=== PATIENT | female | born 1970 | race African-American/Black ===

== ENCOUNTER 2022-07-27 10:05 | Outpatient (CLI) | payer OTHER, SELFPAY ==
--- NOTE | 2022-07-27 10:15 | CRLHL7_ITS ---
For Patients: As a result of the Century Cures Act, medical imaging exams and procedure reports are released immediately into your electronic medical record. You may view this report before your referring provider. If you have questions, please contact your health care provider. INDICATION: Dizziness TECHNIQUE: Non-contrast sagittal T1, axial FLAIR, FSE T2, DWI, posterior fossa CISS images provided. Supplemental post contrast T1 weighted axial and coronal high resolution images through the posterior fossa with fat saturation and post contrast whole head axial T1 weighted images submitted. No comparisons. FINDINGS: The ventricles, sulci and gyri are of normal size, shape and contour for age. Midline structures are centrally located. No convincing evidence of suspicious intra- or extra-axial fluid collections. No regions of restricted diffusion. Expected flow-voids within the cavernous carotids and basilar artery. No suspicious masses within the internal auditory canals. No suspicious regions of abnormal parenchymal enhancement. IMPRESSION: 1. No radiographic evidence of acute intracranial abnormalities. Dictated by Titus Georges MD @ 07/27/2022 6:01:12 PM (Electronically Signed)
== END 2022-07-27 10:06 | disposition home or self-care (01) ==
LOC: MRI 10:06
PROVIDERS: Visit Provider Otolaryngology
DX: R42 Dizziness and giddiness (principal)
CPT/HCPCS: 70553; A9575

== ENCOUNTER 2022-10-10 22:13 | Emergency (ER) | payer OTHER, SELFPAY ==
[2022-10-10 22:28] VITALS: BP 117/76; PULSE 65; RESP 18; TEMP 37.3; O2SAT 100; BMI 24.9
--- NOTE | 2022-10-10 22:55 | ED.NURSE ---
Up to the bathroom to void and collecting a urine sample.
[2022-10-10 23:08] LABS: Appearance Urine Clear (Clear); Bilirubin Urine Negative (Negative); Blood Urine 2+ (Negative); Color Urine Yellow (Yellow); Glucose Urine Negative (Negative); Ketones Urine Negative (Negative); Leukocyte Esterase Urine Negative (Negative); Nitrite Urine Negative (Negative); Protein Urine Negative (Negative); Specific Gravity Urine >= 1.030 (1.000-1.030); Urobilinogen Urine 0.2 (0.2-1.0)
--- NOTE | 2022-10-10 23:08 | CRLHL7_ITS ---
For Patients: As a result of the 21st Century Cures Act, medical imaging exams and procedure reports are released immediately into your electronic medical record. You may view this report before your referring provider. If you have questions, please contact your health care provider. INDICATION: Abdominal pain and distention. TECHNIQUE: CT abdomen and pelvis acquired with 71 mL Isovue 370 contrast. COMPARISON: None. FINDINGS: Lower chest: No focal consolidation. 0.3 cm subpleural nodule in the left lower lobe (series 3, image 11). Liver: Multiple too small to characterize hypodense hepatic lesions. Gallbladder and bile ducts: Gallbladder is decompressed, suboptimally evaluated. Pancreas: Unremarkable. Spleen: Unremarkable. Adrenal glands: Unremarkable. Kidneys: There is moderate right hydronephrosis and hydroureter, secondary to mass effect from large pelvic mass. Retroperitoneum: No pathologically enlarged lymph node identified. Bowel and mesentery: Evaluation of the bowel and mesentery is limited secondary to presence of large pelvic mass. No evidence of bowel obstruction. No significant ascites. Tiny hiatal hernia. No definite pneumoperitoneum. Bladder: Decompressed, suboptimally evaluated. Reproductive organs: Bulky appearance of the uterus. There is a large mixed cystic and solid mass which is probably centered in the right adnexa measuring approximately 14.3 x 10.7 x 12.4 cm, with several thickened septations and nodular soft tissue components. Pelvic lymph nodes: No pathologically enlarged lymph node identified. Vessels: Unremarkable. Abdominal wall: No acute abdominal wall abnormality. Bones: Dense sclerotic lesion in the L3 vertebral body, favored to reflect a bone island. IMPRESSION: 1. Large mixed cystic and solid mass centered in the right adnexa measuring approximately 14.3 x 10.7 x 12.4 cm, with several thickened septations and nodular soft tissue components. Appearance is worrisome for malignant neoplasm, favor to be ovarian in origin. Gynecologic surgical consultation is recommended. 2. Mass effect results in moderate right hydronephrosis and hydroureter. 3. Multiple too small to characterize hypodense hepatic lesions. 0.3 cm subpleural pulmonary nodule in the left lower lobe. These are probably not metastatic, however follow-up with liver MRI and dedicated CT chest on a nonemergent basis is recommended. Please note that all CT scans at this facility use dose modulation, iterative reconstruction, and/or weight-based dosing when appropriate to reduce radiation dose to as low as reasonably achievable. Dictated by Sopo Jillian,MD @ 10/11/2022 12:53:00 AM (Electronically Signed)
--- NOTE | 2022-10-10 23:20 | ED.ABDPAIN ---
HPI - Abdominal Pain General Chief Complaint: Abdominal Pain Stated Complaint: abdominal pain Time Seen by Provider: 10/10/22 22:59 History of Present Illness HPI narrative: Pt is a 52 year old woman who presents with several weeks of progressive abd pain and distension. Pt's abd issues date back to when she was 17 and had a colon perforation during an . Pt had to have surgery and have a colostomy for 6 months or so. She had removal of a uterine fibroid 3 years ago but has not had any other abd surgeries. Pt has had no change in her urination or bowels. Pt states that pain is moderate with radiation to the low abd. No fever or chills. No nausea or vomiting. Pt has been eating a regular diet without any difficulty. No other radiation of the pain. No other significant symptoms. Pt had a normal mensus last week. Related Data Previous Rx's Medication Instructions Recorded meclizine 25 mg chewable tablet 12.5 mg PO BID-TID PRN vertigo #20 07/18/22 (Antivert) tabs fluticasone propionate 50 2 spray intranasal QDAY 30 days 07/19/22 mcg/actuation nasal #16 grams spray,suspension albuterol sulfate 90 mcg/actuation 2 puff inhalation Q6H PRN 08/13/22 aerosol inhaler (Ventolin HFA) shortness of breath or wheezing #6.7 grams Allergies Allergy/AdvReac Type Severity Reaction Status Date / Time hydrocodone [From Vicodin] Allergy Mild Nausea Verified 10/10/22 22:48 Review of Systems Status of ROS Reports: 10 or more systems reviewed and unremarkable except as noted in History and below [facility] Medical History (Updated 10/11/22 @ 01:47 by Marciano Null MD) Ovarian mass Perforated bowel Uterine fibroid Vertigo Social History Smoking Status: Never smoker Exam Narrative: Exam Narrative: EXAM GENERAL: Patient appears comfortable and well. EYES: No scleral icterus. THYROID: no thyroid nodules or thyromegaly. LYMPH: No supraclavicular or cervical lymphadenopathy. SKIN: Visible skin seen during exam normal or with benign process only. EXT: No dependent lower extremity pedal edema. HEART: Regular rate and rhythm with no murmurs, rubs, or gallops. LUNGS: Clear to auscultation bilaterally with no crackles or wheezes. ABD: Mildly distended and rigid. Hypoactive bowel sounds. Previous surgical incisions noted and healed most prominent in the midline. PSYCH: Good eye contact, speech is not pressured. Const: Vital Signs, click to edit/add: Vital Signs - 24 hr 10/10/22 22:28 10/11/22 00:28 Temperature 99.2 F 97.9 F Pulse Rate [Right Pulse Oximeter] 65 64 Respiratory Rate 18 16 Blood Pressure [Ri ght Upper Arm] 117/76 111/73 Pulse Oximetry 100 99 Oxygen Delivery Me thod Room Air Room Air Course Course Hospital Course: Pt seen and examined. CT abd pelvis, cbc, cmp, amylase urine preg and ua ordered. Reevaluation(s) Reevaluation #1: Laboratory significant only for mild nomocytic anemia. CT of abd and pelvis shows a large 14.3X10.7X12.4 cm lesion likely arising from the right ovary suspicious for malignancy. Mild hydronephrosis not with normal Cr. Time: 01:06 Vital Signs Vital signs: Initial Vital Signs Temperature 99.2 F 10/10/22 22:28 Temperature Source Temporal Artery Scan 10/10/22 22:28 Pulse Rate 65 10/10/22 22:28 Respiratory Rate 18 10/10/22 22:28 Blood Pressure 117/76 10/10/22 22:28 Blood Pressure Mean 89 10/10/22 22:28 Blood Pressure Position Sitting 10/10/22 22:28 Pulse Oximetry 100 10/10/22 22:28 Oxygen Delivery Method 10/10/22 22:28 Vital Signs Temperature 99.2 F 10/10/22 22:28 Pulse Rate 65 10/10/22 22:28 Respiratory Rate 18 10/10/22 22:28 Blood Pressure 117/76 10/10/22 22:28 Pulse Oximetry 100 10/10/22 22:28 Oxygen Delivery Method 10/10/22 22:28 Temperature 97.9 F 10/11/22 00:28 Pulse Rate 64 10/11/22 00:28 Respiratory Rate 16 10/11/22 00:28 Blood Pressure 111/73 10/11/22 00:28 Pulse Oximetry 99 10/11/22 00:28 Oxygen Delivery Method 10/11/22 00:28 MDM - Abdominal Pain MDM Narrative Medical decision making narrative: Pt is a 52 year old woman who presents with several weeks of progressive abd pain. CT as above shows a large mass. Pt has distension of abd but otherwise has a normal exam. Vitals are stable. Called [facility] locally who recommended [facility] who I discussed the case with. Oked outpt follow up. Order placed for consult. Pt given my card to make sure all goes smoothly. Differential Diagnosis Differential diagnosis: Likely abdominal pain, acute appendicitis, constipation, diverticulitis, endometriosis, gastroenteritis, pancreatitis and small bowel obstruction Lab Data Labs: Lab Results 10/10/22 10/10/22 10/10/22 Range/Units 00:19 00:19 00:19 WBC 5.59 (4.50-11.00) K/uL RBC 3.83 L (4.00-5.20) m/uL Hgb 10.9 L (12.0-16.0) gm/dL Hct 34.9 (33.0-51.0) % MCV 91 (80-100) fL MCH 29 (26-34) pg MCHC 31 L (32-36) gm/dL RDW Coeff of Raissa 14.9 (11.5-15.5) % Plt Count 392 (140-440) K/uL Neut % (Auto) 52.5 (42.0-72.0) % Lymph % (Auto) 34.3 (20-44) % [place] % (Auto) 11.1 H (0.0-11.0) % Eos % (Auto) 1.6 (0.0-7.0) % Baso % (Auto) 0.5 (0.0-3.0) % Neut # (Auto) 2.93 (1.7-7.0) K/uL Lymph # (Auto) 1.92 (0.90-2.90) K/uL [place] # (Auto) 0.60 (0.00-0.90) K/UL Eos # (Auto) 0.09 (0.00-0.50) K/uL Baso # (Auto) 0.03 (0.00-0.30) K/uL Sodium 139 (135-149) mmol/L Potassium 3.9 (3.6-5.1) mmol/L Chloride 106 (96-114) mmol/L Carbon Dioxide 27 (20-32) mmol/L BUN 10 (7-30) mg/dL Creatinine 0.9 (0.5-1.5) mg/dL Estimated Creat Clear 63.86 Estimated GFR 77 ml/min Glucose 87 (60-115) mg/dL Lactate (0.5-1.9) mmol/L Calcium 8.8 (8.4-10.6) mg/dL Total Bilirubin 0.4 (0.1-1.5) mg/dL AST 35 (12-35) U/L ALT 35 (4-35) U/L Alkaline Phosphatase 53 (40-150) U/L Total Protein 8.1 (6.0-8.3) g/dL Albumin 4.4 (3.3-5.0) g/dL Amylase 79 (18-89) U/L Urine Color Yellow (Yellow) Urine Appearance Clear (Clear) Urine pH 6.0 (5.0-8.5) Ur Specific [place] >= 1.030 (1.000-1.030) Urine Protein Negative (Negative) Urine Glucose (UA) Negative (Negative) Urine Ketones Negative (Negative) Urine Blood 2+ A (Negative) Urine Nitrite Negative (Negative) Urine Bilirubin Negative (Negative) Urine Urobilinogen 0.2 (0.2-1.0) Ur Leukocyte Esterase Negative (Negative) Urine RBC 2-5 A (0-2) Urine WBC 0-2 (0-5) Ur Squamous Epith Cells Moderate A (None-Few) Other Sediment YEAST (None) Urine Bacteria Few A (None) 10/10/22 Range/Units 00:19 WBC (4.50-11.00) K/uL RBC (4.00-5.20) m/uL Hgb (12.0-16.0) gm/dL Hct (33.0-51.0) % MCV (80-100) fL MCH (26-34) pg MCHC (32-36) gm/dL RDW Coeff of Raissa (11.5-15.5) % Plt Count (140-440) K/uL Neut % (Auto) (42.0-72.0) % Lymph % (Auto) (20-44) % [place] % (Auto) (0.0-11.0) % Eos % (Auto) (0.0-7.0) % Baso % (Auto) (0.0-3.0) % Neut # (Auto) (1.7-7.0) K/uL Lymph # (Auto) (0.90-2.90) K/uL [place] # (Auto) (0.00-0.90) K/UL Eos # (Auto) (0.00-0.50) K/uL Baso # (Auto) (0.00-0.30) K/uL Sodium (135-149) mmol/L Potassium (3.6-5.1) mmol/L Chloride (96-114) mmol/L Carbon Dioxide (20-32) mmol/L BUN (7-30) mg/dL Creatinine (0.5-1.5) mg/dL Estimated Creat Clear Estimated GFR ml/min Glucose (60-115) mg/dL Lactate 0.5 (0.5-1.9) mmol/L Calcium (8.4-10.6) mg/dL Total Bilirubin (0.1-1.5) mg/dL AST (12-35) U/L ALT (4-35) U/L Alkaline Phosphatase (40-150) U/L Total Protein (6.0-8.3) g/dL Albumin (3.3-5.0) g/dL Amylase (18-89) U/L Urine Color (Yellow) Urine Appearance (Clear) Urine pH (5.0-8.5) Ur Specific [place] (1.000-1.030) Urine Protein (Negative) Urine Glucose (UA) (Negative) Urine Ketones (Negative) Urine Blood (Negative) Urine Nitrite (Negative) Urine Bilirubin (Negative) Urine Urobilinogen (0.2-1.0) Ur Leukocyte Esterase (Negative) Urine RBC (0-2) Urine WBC (0-5) Ur Squamous Epith Cells (None-Few) Other Sediment (None) Urine Bacteria (None) Discharge Plan Discharge Clinical Impression: Mass, ovarian Patient Disposition: Home, Self-Care Condition: Stable Additional Instructions: Tylenol Motrin Rest Follow up with [facility] for further recommendations. Activity Level: Activity as Tolerated Discharge Diet: Regular Prescriptions: No Action meclizine [Antivert] 25 mg tablet,chewable 12.5 mg PO BID-TID PRN (Reason: vertigo) Qty: 20 0RF fluticasone propionate 50 mcg/actuation spray,suspension 2 spray intranasal QDAY 30 Days Qty: 16 11RF Rx Instructions: administer into each nostril albuterol sulfate [Ventolin HFA] 90 mcg/actuation HFA aerosol inhaler 2 puff inhalation Q6H PRN (Reason: shortness of breath or wheezing) Qty: 6.7 0RF Follow Up/Referrals: Provider,Not a Local [Primary Care Provider] - Stand Alone Forms: [employer] Info Instructions
[2022-10-10 23:35] LABS: Lactate* 0.5 mmol/L (0.5-1.9)
[2022-10-10 23:36] LABS: Bacteria Urine Few; Other Sediment Urine YEAST; Squamous Epithelial Cell Urine Moderate (None-Few); WBC Urine 0-2 (0-5)
[2022-10-10 23:37] LABS: Basophils Absolute Auto 0.03 K/uL (0.00-0.30); Basophils Percent Auto 0.5 % (0.0-3.0); Eosinophils Absolute Auto 0.09 K/uL (0.00-0.50); Eosinophils Percent Auto 1.6 % (0.0-7.0); Hematocrit 34.9 % (33.0-51.0); Hemoglobin* 10.9 gm/dL (12.0-16.0); Lymphocytes Absolute Auto 1.92 K/uL (0.90-2.90); Lymphocytes Percent Auto 34.3 % (20-44); Mean Corpuscular HGB Conc 31 gm/dL (32-36); Mean Corpuscular Hemoglobin 29 pg (26-34); Mean Corpuscular Volume 91 fL (80-100); Monocytes Percent Auto 11.1 % (0.0-11.0); Neutrophils Absolute Auto 2.93 K/uL (1.7-7.0); Neutrophils Percent Auto 52.5 % (42.0-72.0); Platelet Count* 392 K/uL (140-440); RDW Coefficient of Variation % 14.9 % (11.5-15.5); Red Blood Count 3.83 m/uL (4.00-5.20); White Blood Count* 5.59 K/uL (4.50-11.00)
[2022-10-10 23:40] LABS: Slide Review Reflex No
--- NOTE | 2022-10-10 23:53 | ED.NURSE ---
Pt to imaging.
[2022-10-10 23:55] LABS: Albumin* 4.4 g/dL (3.3-5.0); Chloride* 106 mmol/L (96-114); Potassium* 3.9 mmol/L (3.6-5.1); Sodium* 139 mmol/L (135-149)
[2022-10-10 23:57] LABS: Amylase* 79 U/L (18-89); Carbon Dioxide* 27 mmol/L (20-32)
[2022-10-10 23:58] LABS: Alanine Aminotransferase* 35 U/L (4-35); Alkaline Phosphatase* 53 U/L (40-150); Aspartate Amino Transferase* 35 U/L (12-35); Bilirubin Total* 0.4 mg/dL (0.1-1.5); Blood Urea Nitrogen* 10 mg/dL (7-30); Calcium* 8.8 mg/dL (8.4-10.6); Creatinine* 0.9 mg/dL (0.5-1.5); Est. Creatinine Clearance* 63.86; Estimated Glomerular Filt Rate 77 ml/min; Glucose* 87 mg/dL (60-115); Total Protein* 8.1 g/dL (6.0-8.3)
--- NOTE | 2022-10-11 00:18 | ED.NURSE ---
Waiting for CT results.
[2022-10-11 00:28] VITALS: BP 111/73; PULSE 64; RESP 16; TEMP 36.6; O2SAT 99
--- NOTE | 2022-10-11 01:29 | ED.NURSE ---
Dr. Null talking to [facility] at this time.
--- NOTE | 2022-10-11 01:31 | ED.NURSE ---
Dr. Null in room.
[2022-10-11 02:01] VITALS: BP 146/106
--- NOTE | 2022-10-11 02:12 | ED.NURSE ---
Pt given discharge instructions. Referral nurse will be calling patient tomorrow to get her set up with [facility].
--- NOTE | 2022-10-11 15:25 | ED.NURSE ---
pt called with questions regarding lab work
== END 2022-10-11 02:15 | disposition home or self-care (01) ==
PROVIDERS: Emergency Provider Internal Medicine
DX: N83.201 Unspecified ovarian cyst, right side (principal)
CPT/HCPCS: 36415; 74177; 80053; 81001; 81003; 82150; 83605; 85025; 87086; 99283; 99284; Q9967

== ENCOUNTER 2022-10-21 09:40 | Outpatient (CLI) | payer OTHER, SELFPAY | END 2022-10-21 09:41 | disposition home or self-care (01) | LOC: NFLDREF 10-24 15:51 | PROVIDERS: PCP Internal Medicine; Visit Provider Internal Medicine | DX: Z20.822 Contact with and (suspected) exposure to COVID-19 (principal) | CPT/HCPCS: 87635 ==

== ENCOUNTER 2023-08-30 12:39 | Emergency (ER) | payer OTHER, SELFPAY ==
[2023-08-30 12:54] VITALS: BP 103/80; PULSE 73; RESP 18; TEMP 36.7; O2SAT 99; BMI 24.9
--- NOTE | 2023-08-30 13:22 | ED_ITS ---
HPI - General Adult General Chief complaint: Back Injury/Pain Stated complaint: neck / back spasms Time Seen by Provider: 08/30/23 12:39 History of Present Illness HPI narrative: This 53-year-old female comes in reporting upper back and neck discomfort radiating into her upper arms bilaterally. She does not report any injury event. She was at physical therapy yesterday as she had ovarian cancer with surgery and now has completed chemotherapy. As a consequence of this she states there is some neuropathy causing symptoms in her back. She does not report any recent strenuous activity or injury event. Related Data Previous Rx's Medication Instructions Recorded meclizine 25 mg chewable tablet 12.5 mg (1/2 x 25 mg) PO BID-TID 07/18/22 (Antivert) PRN vertigo #20 tabs fluticasone propionate 50 2 spray intranasal QDAY 30 days 07/19/22 mcg/actuation nasal #16 grams spray,suspension albuterol sulfate 90 mcg/actuation 2 puff inhalation Q6H PRN 08/13/22 aerosol inhaler (Ventolin HFA) shortness of breath or wheezing #6.7 grams cyclobenzaprine 10 mg tablet 10 mg PO TID #15 tabs 08/30/23 ketorolac 10 mg tablet 10 mg PO Q8H 5 days #15 tabs 08/30/23 methylprednisolone 4 mg tablets in See Rx Instructions PO .COMPLEX 08/30/23 a dose pack (Medrol (Ar)) #21 ea tramadol 50 mg tablet 50 mg PO Q6H PRN pain #15 tabs 08/30/23 Allergies Allergy/AdvReac Type Severity Reaction Status Date / Time hydrocodone [From Vicodin] Allergy Mild Nausea Verified 10/19/22 16:04 Iron Analogues Allergy Unknown Unknown Uncoded 10/21/22 12:46 Review of Systems Status of ROS: Reports: 10 or more systems reviewed and unremarkable except as noted in History and below Narrative: Constitutional: No fevers, no weight gain or loss. Eyes: No discharge. No vision changes. HENT: No congestion, no sore throat, no ear pain. Cardiovascular: No chest pain, no palpitations. Respiratory: No shortness of breath, no wheezes, no cough. Gastrointestinal: No abdominal pain, no vomiting, no diarrhea. Genitourinary: No dysuria, no hematuria. Musculoskeletal: Neck pain and upper back pain radiating into the upper arms bilaterally. Skin: No rashes, no pruritis. Neurological: No dizziness, weakness, sensory change, speech change. Endo/Heme/Allergies: No bruising or bleeding. No polydipsia. Pysch: no suicidality, no anxiety, no insomnia. All other systems reviewed and are negative. [facility] Medical History (Updated 08/30/23 @ 13:28 by Tomas Bravo MD) History of hypothyroidism ?Z86.39 - Personal history of other endocrine, nutritional and metabolic disease (ICD-10) History of menorrhagia ?Z87.42 - Personal history of other diseases of the female genital tract (ICD-10) Abnormal MRI scan, bone ?R93.7 - Abnormal findings on diagnostic imaging of other parts of musculoskeletal system (ICD-10) History of iron deficiency anemia ?Z86.2 - Personal history of diseases of the blood and blood-forming organs and certain disorders involving the immune mechanism (ICD-10) Ovarian mass, right (09/2022) ?N83.8 - Other noninflammatory disorders of ovary, fallopian tube and broad ligament (ICD-10) Perforated bowel ?K63.1 - Perforation of intestine (nontraumatic) (ICD-10) Vertigo ?R42 - Dizziness and giddiness (ICD-10) Surgical History (Updated 10/21/22 @ 13:15 by Lilibeth Shane) History of uterine fibroid (05/17/18) ?Z86.018 - Personal history of other benign neoplasm (ICD-10) Family History (Updated 10/21/22 @ 12:44 by Lilibeth Shane) Mother High blood pressure Social History Smoking Status: Never smoker Do you use any of these nicotine containing products: None Second hand tobacco smoke exposure: No How often do you have a drink containing alcohol: never How often do you have six or more drinks on one occasion: Never AUDIT-C Alcohol total score: 0 service: No Exam Narrative: Exam Narrative: Constitutional: Well-developed, well-nourished, no acute distress. HEENT: Normocephalic, atraumatic. Neck: Normal range of motion. Nontender. Supple. Heart: Regular. No murmurs. Normal rate. Intact distal pulses. Lungs: Clear to auscultation. No chest discomfort. No wheezes, rhonchi, or rales. Abdomen: Normal bowel sounds. Nontender. No rebound tenderness. Genitalia: Deferred. Back: No midline tenderness. Normal range of motion. Extremities: Normal range of motion. No injury. Skin: Intact. No rash. Warm. No erythema or pallor. Neurologic: No altered sensation. No weakness. Alert and oriented. Psychiatric: No suicidality. No anxiety or depression. No insomnia. Nursing notes and vitals signs are reviewed. Const: Vital Signs, click to edit/add: Vital Signs - 24 hr 08/30/23 12:54 Temperature 98.1 F Pulse Rate [Pulse Oximeter] 73 Respiratory Rate 18 Blood Pressure [Le ft Upper Arm] 103/80 Pulse Oximetry 99 Oxygen Delivery Me thod Room Air Course Vital Signs Vital signs: Initial Vital Signs Temperature 98.1 F 08/30/23 12:54 Temperature Source Temporal Artery Scan 08/30/23 12:54 Pulse Rate 73 08/30/23 12:54 Pulse Rhythm Regular 08/30/23 12:54 Respiratory Rate 18 08/30/23 12:54 Blood Pressure 103/80 08/30/23 12:54 Blood Pressure Mean 87 08/30/23 12:54 Blood Pressure Position Supine 08/30/23 12:54 Pulse Oximetry 99 08/30/23 12:54 Oxygen Delivery Method Room Air 08/30/23 12:54 Vital Signs Temperature 98.1 F 08/30/23 12:54 Pulse Rate 73 08/30/23 12:54 Respiratory Rate 18 08/30/23 12:54 Blood Pressure 103/80 08/30/23 12:54 Pulse Oximetry 99 08/30/23 12:54 Oxygen Delivery Method Room Air 08/30/23 12:54 Temperature 98.1 F 08/30/23 12:54 Pulse Rate 73 08/30/23 12:54 Respiratory Rate 18 08/30/23 12:54 Blood Pressure 103/80 08/30/23 12:54 Pulse Oximetry 99 08/30/23 12:54 Oxygen Delivery Method Room Air 08/30/23 12:54 Medical Decision Making MDM Narrative Medical decision making narrative: This patient has report of muscle spasms as described above. She does not have any injury event requiring imaging studies at this time. She does have pain radiating into her arms at times and may have some cervical radiculopathy. The patient did have some tramadol that was prescribed for her for her abdominal surgery to remove her ovarian cancer. She had 1 pill left and took this which provided some relief for her. Today she received an intramuscular injection of Toradol 15 mg and prescription for Toradol, Flexeril, tramadol, and Medrol Dosepak. Discharge Plan Discharge Clinical Impression: Muscle spasm Patient Disposition: Home, Self-Care Condition: Stable Additional Instructions: Take medication as prescribed and needed. Follow up with MD return if worsening symptoms happen. Prescriptions: New cyclobenzaprine 10 mg tablet 10 mg PO TID Qty: 15 0RF tramadol 50 mg tablet 50 mg PO Q6H PRN (Reason: pain) Qty: 15 0RF ketorolac 10 mg tablet 10 mg PO Q8H 5 Days Qty: 15 0RF methylprednisolone [Medrol (Ar)] 4 mg tablets,dose pack See Rx Instructions .ROUTE .COMPLEX Qty: 21 0RF Rx Instructions: orally per package directions No Action meclizine [Antivert] 25 mg tablet,chewable 12.5 mg PO BID-TID PRN (Reason: vertigo) Qty: 20 0RF fluticasone propionate 50 mcg/actuation spray,suspension 2 spray intranasal QDAY 30 Days Qty: 16 11RF Rx Instructions: administer into each nostril albuterol sulfate [Ventolin HFA] 90 mcg/actuation HFA aerosol inhaler 2 puff inhalation Q6H PRN (Reason: shortness of breath or wheezing) Qty: 6.7 0RF Follow Up/Referrals: Marciano Null MD [Primary Care Provider] - Stand Alone Forms: [employer] Info Instructions
[2023-08-30] MEDS: KETOROLAC 15 MG/ML inj IM (13:36)
== END 2023-08-30 13:50 | disposition home or self-care (01) ==
LOC: ED 13:40
PROVIDERS: Emergency Provider Emergency Medicine Emergency Medical Services; PCP Internal Medicine
DX: M54.2 Cervicalgia (principal); M62.830 Muscle spasm of back
CPT/HCPCS: 96372; 99283; 99284; J1885

== ENCOUNTER 2023-10-16 16:18 | Emergency (ER) | payer OTHER, SELFPAY ==
[2023-10-16 16:58] VITALS: BP 110/68; PULSE 64; RESP 18; TEMP 36.8; O2SAT 98; BMI 25.7
[2023-10-16 17:47] LABS: PCR FLU A Negative PCR FLU A (Negative); PCR FLU B Negative PCR FLU B (Negative); PCR RSV Negative PCR RSV (Negative)
[2023-10-16 17:58] LABS: SARS PCR* Negative SARS-CoV-2 (Negative)
[2023-10-16 19:18] VITALS: BP 107/80; PULSE 64; RESP 16; O2SAT 96
--- NOTE | 2023-10-16 19:21 | ED_ITS ---
HPI - General Adult General Chief complaint: Cough Stated complaint: lost voice, coughing phlegm 6 days Time Seen by Provider: 10/16/23 19:11 Source: patient Mode of arrival: ambulatory Limitations: no limitations History of Present Illness HPI narrative: 53-year-old female coming in today with 5 days of cough, ear pain, sore throat. She denies fevers or chills. Appetite has been good. She feels that her sympt oms have been getting better over the last 48 hours. Cough does sometimes wake her up at night but she is able to go back to sleep. She had a couple days of diarrhea but that has resolved. Her throat feels raw and is worse right after coughing. She denies any sick contacts that she is aware of. She denies chest or abdominal pain. She has not been vomiting. She denies weakness or focal neurologic deficits. She is very concerned because in the last couple of days she has also lost her voice. Related Data Previous Rx's Medication Instructions Recorded meclizine 25 mg chewable tablet 12.5 mg (1/2 x 25 mg) PO BID-TID 07/18/22 (Antivert) PRN vertigo #20 tabs fluticasone propionate 50 2 spray intranasal QDAY 30 days 07/19/22 mcg/actuation nasal #16 grams spray,suspension albuterol sulfate 90 mcg/actuation 2 puff inhalation Q6H PRN 08/13/22 aerosol inhaler (Ventolin HFA) shortness of breath or wheezing #6.7 grams cyclobenzaprine 10 mg tablet 10 mg PO TID #15 tabs 08/30/23 ketorolac 10 mg tablet 10 mg PO Q8H 5 days #15 tabs 08/30/23 methylprednisolone 4 mg tablets in See Rx Instructions PO .COMPLEX 08/30/23 a dose pack (Medrol (Ar)) #21 ea tramadol 50 mg tablet 50 mg PO Q6H PRN pain #15 tabs 08/30/23 Allergies Allergy/AdvReac Type Severity Reaction Status Date / Time hydrocodone [From Vicodin] Allergy Mild Nausea Verified 10/19/22 16:04 Iron Analogues Allergy Unknown Unknown Uncoded 10/21/22 12:46 Review of Systems Status of ROS: Reports: 10 or more systems reviewed and unremarkable except as noted in History and below [facility] Medical History History of hypothyroidism ?Z86.39 - Personal history of other endocrine, nutritional and metabolic disease (ICD-10) History of menorrhagia ?Z87.42 - Personal history of other diseases of the female genital tract (ICD-10) Abnormal MRI scan, bone ?R93.7 - Abnormal findings on diagnostic imaging of other parts of musculoskeletal system (ICD-10) History of iron deficiency anemia ?Z86.2 - Personal history of diseases of the blood and blood-forming organs and certain disorders involving the immune mechanism (ICD-10) Ovarian mass, right (09/2022) ?N83.8 - Other noninflammatory disorders of ovary, fallopian tube and broad ligament (ICD-10) Perforated bowel ?K63.1 - Perforation of intestine (nontraumatic) (ICD-10) Vertigo ?R42 - Dizziness and giddiness (ICD-10) Surgical History History of uterine fibroid (05/17/18) ?Z86.018 - Personal history of other benign neoplasm (ICD-10) Family History Mother High blood pressure Social History Smoking Status: Never smoker Do you use any of these nicotine containing products: None Second hand tobacco smoke exposure: No How often do you have a drink containing alcohol: never How often do you have six or more drinks on one occasion: Never AUDIT-C Alcohol total score: 0 service: No Exam Narrative: Exam Narrative: Well-nourished well-developed patient in no acute distress. Alert and oriented. Answers questions appropriately. Mood and affect are appropriate. Thoughts are goal oriented and rational. No tangential or magical thinking noted. Patient speaks in full sentences without needing to catch her breath. Voice is hoarse and scratchy consistent with laryngitis. Patient is not tachypneic, tachycardic or hypoxic. HEENT: Normocephalic atraumatic. Pupils are equally round reactive to light. Extraocular muscles are intact. Conjunctivae are moist without any icterus noted. Moist mucous membranes. Posterior pharynx is normal. Neck is soft without any lymphadenopathy or thyromegaly. No masses are appreciated. TMs are clear bilaterally. Cardiovascular: Heart is regular rate and rhythm S1 and S2 are present without any murmurs. Lungs: Clear to auscultation bilaterally no wheezes rhonchi or rales are appreciated. Patient takes deep breaths without any discomfort. Abdomen: Soft and nontender nondistended with normal bowel sounds. Extremities: Bilateral lower extremities are without edema. Skin: Well perfused without any obvious rashes. Const: Vital Signs, click to edit/add: Vital Signs - 24 hr 10/16/23 16:58 Temperature 98.2 F Pulse Rate [Pulse Oximeter] 64 Respiratory Rate 18 Blood Pressure [Ri ght Upper Arm] 110/68 Pulse Oximetry 98 Oxygen Delivery Me thod Room Air Course Course ED Course: Triple swab is negative. Vital Signs Vital signs: Initial Vital Signs Temperature 98.2 F 10/16/23 16:58 Temperature Source Temporal Artery Scan 10/16/23 16:58 Pulse Rate 64 10/16/23 16:58 Respiratory Rate 18 10/16/23 16:58 Blood Pressure 110/68 10/16/23 16:58 Blood Pressure Mean 82 10/16/23 16:58 Pulse Oximetry 98 10/16/23 16:58 Oxygen Delivery Method Room Air 10/16/23 16:58 Vital Signs Temperature 98.2 F 10/16/23 16:58 Pulse Rate 64 10/16/23 16:58 Respiratory Rate 18 10/16/23 16:58 Blood Pressure 110/68 10/16/23 16:58 Pulse Oximetry 98 10/16/23 16:58 Oxygen Delivery Method Room Air 10/16/23 16:58 Temperature 98.2 F 10/16/23 16:58 Pulse Rate 64 10/16/23 16:58 Respiratory Rate 18 10/16/23 16:58 Blood Pressure 110/68 10/16/23 16:58 Pulse Oximetry 98 10/16/23 16:58 Oxygen Delivery Method Room Air 10/16/23 16:58 Medical Decision Making [facility] Narrative Medical decision making narrative: 53-year-old female with upper respiratory infection, likely viral in nature. We discussed symptomatic treatment and reasons for follow-up. Do not think that further workup is needed at this time given that the patient has a normal lung exam, her symptoms are getting better and she has been afebrile. Lab Data Lab results reviewed: Yes I reviewed the patient's lab results Labs: Lab Results 10/16/23 Range/Units 17:04 SARS-CoV-2 (PCR) Negative SARS-CoV-2 (Negative) Influenza Type A (PCR) Negative PCR FLU A (Negative) Influenza Type B (PCR) Negative PCR FLU B (Negative) RSV (PCR) Negative PCR RSV (Negative) Discharge Plan Discharge Prescriptions: No Action meclizine [Antivert] 25 mg tablet,chewable 12.5 mg PO BID-TID PRN (Reason: vertigo) Qty: 20 0RF fluticasone propionate 50 mcg/actuation spray,suspension 2 spray intranasal QDAY 30 Days Qty: 16 11RF Rx Instructions: administer into each nostril albuterol sulfate [Ventolin HFA] 90 mcg/actuation HFA aerosol inhaler 2 puff inhalation Q6H PRN (Reason: shortness of breath or wheezing) Qty: 6.7 0RF cyclobenzaprine 10 mg tablet 10 mg PO TID Qty: 15 0RF tramadol 50 mg tablet 50 mg PO Q6H PRN (Reason: pain) Qty: 15 0RF ketorolac 10 mg tablet 10 mg PO Q8H 5 Days Qty: 15 0RF methylprednisolone [Medrol (Ar)] 4 mg tablets,dose pack See Rx Instructions .ROUTE .COMPLEX Qty: 21 0RF Rx Instructions: orally per package directions
== END 2023-10-16 19:42 | disposition home or self-care (01) ==
LOC: ED 19:31
PROVIDERS: Emergency Provider Family Medicine; PCP Internal Medicine
DX: J06.9 Acute upper respiratory infection, unspecified (principal)
CPT/HCPCS: 87631; 99282; 99283; 99284

== ENCOUNTER 2024-07-24 16:51 | Outpatient (CLI) | payer OTHER, SELFPAY ==
--- OUTSIDE RECORDS SUMMARY | 2024-07-24 16:54 | XMS_ITS | Encounter Summary ---
Author Organization [facility] Address [address] [place] [address]. [place] [address] Care Team Providers Care Research Worker Kitchen Name Role Phone Cristian Baca MD, Olga Unavailable [phone] Cristian Baca MD, Olga Primary Care Provider [phone] Encounter Details Date Type Department Care Team (Latest Contact Info) Description 07/23/2024 Travel Social History Tobacco Use Types Packs/Day Years Used Date Smoking Tobacco: Never Assessed Alcohol Use Standard Drinks/Week Comments No 0 (1 standard drink = 0.6 oz pur e alcohol) Adolescent Education Answer Date Record ed Getting School Help Needed Not on file 07/08 Sex and Gender Information Value Date Recorded Sex Assigned at Not on file Gender Identity Not on file Sexual Orientation Not on file documented as of this encounter Plan of Treatment Upcoming Encounters Date Type Department Care Team (Late st Contact Info) Description 08/13/2024 4:15 PM CDT Therapy Visit [facility] [address] [facility] [address] [place] [phone] [place] [address] [address] [place] [address] 08/27/2024 4:15 PM CAR USHER Therapy Visit [facility] [address] [facility] [address] [place] [phone] [place] [address] [address] [place] [address] 09/10/2024 4:15 PM CAR USHER Therapy Visit [facility] [address] [facility] [address] [place] [phone] [place] [address] [place] [address] documented as of this encounter Visit Diagnoses Not on filedocumented in this encounter Care Teams Research Worker Kitchen Relationship Specialty Start Date End Date Danitza Foster MD [address] [place] [address] PCP - General 04/12/23 Danitza Foster MD [address] [place] [address] 05/04/15 documented as of this encounter
--- OUTSIDE RECORDS SUMMARY | 2024-07-24 16:54 | XMS_ITS | Encounter Summary ---
Author Organization [facility] Address [address] [place] [address]. [place] [address] Care Team Providers Care Drug Safety Specialist Name Role Phone Cristian Baca MD, Olga Unavailable [phone] Cristian Baca MD, Olga Primary Care Provider [phone] Reason for Visit * Rehab Therapy Integrated Services (Routine) - Authorized Specialty Diagnoses / Procedures Referred By Parth springer Referred To Contact Diagnoses Pelvic Floor/ Rosalind Obando CNP@ [facility] Procedures PELVIC HEALTH TREATMENT [address] [address] Referral ID Status Reason Start Date Expiration Date V isits Requested Visits Authorized [id number] Authorized 10/24/2023 10/15/2024 365 365 Encounter Details Date Type Department Care Team (Latest Contact Info) Description 07/23/2024 4:15 PM CDT Therapy Visit [facility] [address] [place] [address] [place] [address] [place] [address] Pelvic floor dysfunction in female (Primary Dx) Social History Tobacco Use Types Packs/Day Years [...] Description 08/13/2024 4:15 PM CDT Therapy Visit [facility] [address] [place] [address] [address] [place] [phone] [place] [address] [place] [address] 08/27/2024 4:15 PM HARNESS CUTTER Therapy Visit [address] [phone] [place] [address] [place] [address] 09/10/2024 4:15 PM HARNESS CUTTER Therapy Visit [facility] [address] [place] [phone] [place] [address] [place] [address] documented as of this encounter Visit Diagnoses Diagnosis Pelvic floor dysfunction in female- Primary documented in this encounter Care Teams Drug Safety Specialist Relationship Specialty Start Date End Date Danitza Foster MD [address] [place] [address] PCP - General 04/12/23 Danitza Foster MD [address] [facility] [place] [address] 05/04/15 documented as of this encounter
--- OUTSIDE RECORDS SUMMARY | 2024-07-24 16:54 | XMS_ITS | Clinical Summary ---
Author Organization [facility] Address [address] [place] [address]. [place] [address] Care Team Providers Care Biochemistry Teacher Name Role Phone Cristian Baca MD, Olga Unavailable [phone] Cristian Baca MD, Olga Primary Care Provider [phone] Allergies Active Allergy Reactions Criticality Noted Date Comments Hydrocodone 05/04/2015 Medications Medication Sig Dispensed Refills Start Date End Date Status MULTIVITAMIN TABS OR 1 tablet daily 0 0 11/26/2004 Active FLONASE INHA 50 MCG/DOSE NAIndications:Allergic rhinitis, cause unspecified 2 SPRAYS IN EACH NOSTRIL QD (Once per day) 1 prn 1 yr 11/26/2004 Active ALBUTEROL 90 MCG/ACT IN AERSIndications:Mild intermittent asthma with exacerbation 1-2 puffs Q 4-6 hrs prn 1 1 08/12/2005 Active COLACE 100 MG OR CAPSIndications:Slow transit constipation 2 CAPSULES DAILY 60 prn 1 yr 09/07/2005 Active Iron Sucrose (VENOFER IV) Active ARMOUR THYROID PO Active Active Problems Problem Noted Date Diagnosed Date Pelvic floor dysfunction in female 06/29/2023 Iron deficiency anemia 01/13/2006 Overview: Problem list name updated by automated process. Provider to review Allergic rhinitis due to other allergen 08/21/20 05 Mild intermittent asthma 05/26/2005 Resolved Problems Problem Noted Date Diagnosed Date Resolved Date Bilateral low back pain 04/25/2023 09/2 05/2023 Pain in both lower extremities 04/25/2023 07/13/2023 Generalized muscle weakness 04/25/2023 07/13/2023 Balance problems 04/25/2023 07/13/2023 History of ovarian cancer 04/25/2023 Encounters Date Type Department Care Team Description 07/23/2024 4:15 PM CDT Therapy Visit [facility] [id number] [place] [address] [address] [place] [address] Savanna Yu, PT Pelvic floor dysfunction in female (Primary Dx) 07/23/2024 Travel 07/10/2024 3:50 PM CDT Therapy Visit [address] [place] [address] Savanna Yu, PT Pelvic floor dysfunction in female (Primary Dx) 07/10/2024 Travel 06/28/2024 4:10 PM CDT Therapy Visit [address] [address] Wild, Mitra, PT Pelvic floor dysfunction in female (Primary Dx) 06/28/2024 Travel 06/20/2024 5:20 PM CDT Therapy Visit [address] [address] Wild, Mitra, PT Pelvic floor dysfunction in female (Primary Dx) 06/20/2024 Travel 06/14/2024 10:20 AM CDT Therapy Visit [address] [address] Wild, Mitra, PT Pelvic floor dysfunction in female (Primary Dx) 06/14/2024 Travel 05/20/2024 2:40 PM CDT Therapy Visit [address] [address] Wild, Mitra, PT Pelvic floor dysfunction in female (Primary Dx) 05/20/2024 Travel 05/07/2024 2:15 PM CDT Therapy Visit [facility] [address] [facility] [address] [place] [address] Savanna Yu, PT Pelvic floor dysfunction in female (Primary Dx) 05/07/2024 Travel 04/25/2024 2:00 PM CDT Therapy Visit [facility] [address] [facility] [address] [place] [address] Mitra Esteban, PT Pelvic floor dysfunction in female (Primary Dx) 04/25/2024 Travel from Last 3 Months Family History Medical History Relation Comments Hypertension Maternal Grandfather Hypertension Mother Hypertension Paternal Grandfather Hypertension Sister Relation Status Comments Maternal Grandfather Mother Paternal Grandfather Sister Social History Tobacco Use Types Packs/Day Years [...] on file Sexual Orientation Not on file Last Filed Vital Signs Vital Sign Reading Time Taken Comments Blood Pressure 94/56 05/17/2021 1:45 AM CDT Pulse 74 05/17/2021 1:45 AM CDT Temperature 37.7 ??C (99.8 ??F) 05/17/2021 1:30 AM CD T Respiratory Rate 18 05/16/2021 11:46 PM CDT Oxygen Saturation 98% 05/17/2021 1:45 AM CDT Inhaled Oxygen Concentration - - Weight 63.5 kg (140 lb) 05/16/2021 11:46 PM CDT Height 162.6 cm (5' 4) 05/16/2021 11:46 PM CDT Body Mass Index 24.03 05/16/2021 11:46 PM CDT Plan of Treatment Upcoming Encounters Date Type Department Care Team (Late st Contact Info) Description 08/13/2024 4:15 PM CDT Therapy Visit [facility] [address] [facility] [address] [place] [phone] [place] [address] [facility] [address] [place] [address] 08/27/2024 4:15 PM SHIP SURVEYOR Therapy Visit [facility] [address] [place] [phone] [place] [address] [place], [place] [phone] 09/10/2024 4:15 PM SHIP SURVEYOR Therapy Visit [facility] [address] [place] [address] [place] [address] [place] [address] Health Maintenance Due Date Last Done Comments ADVANCE CARE PLANNING 1971 ANNUAL REVIEW OF HM ORDERS [address] ASTHMA CONTROL TEST [address] COLONOGRAPHY 1971 FIT 1971 FLEX SIG 1971 YEARLY PREVENTIVE VISIT 1971 sDNA (Cologuard) 1971 Pneumococcal Vaccine: Pediatrics (0 to 5 Years) and At-Risk Patients (6 to 64 Years) (1 of 2 - PCV) 1977 COLONOSCOPY 1981 COLORECTAL CANCER SCREENING 1981 HIV SCREENING 1986 HEPATITIS C SCREENING 1989 HEPATITIS B IMMUNIZATION (1 of 3 - 19+ 3-dose series) 1990 ASTHMA ACTION PLAN 05/26/2006 05/26/2005 TSH W/FREE T4 REFLEX 06/26/2020 06/26/2019, 01/04/20 06 ZOSTER IMMUNIZATION (1 of 2) 2021 PHQ-2 (once per calendar year) 2023 GLUCOSE 05/17/2024 05/17/2021, 03/0 05/2021, 06/26/2019, Additional history exists COVID-19 Vaccine ( season) 2024 09/02/2022, 07/26/2021, 06/25/2021 INFLUENZA VACCINE (#1) 2024 2, 07/17/2009, 04/20/2009 MAMMO SCREENING 08/31/2025 08/31/2023, 07/28/2023 PAP 10/24/2025 10/24/2022, 10/24/2022 LIPID 12/21/2025 12/21/2020 DTAP/TDAP/TD IMMUNIZATION (3 - Td or Tdap) 10/19/2032 10/19/2022, 04/20/2009 RSV VACCINE (1 - 1-dose 75+ series) 2046 HPV IMMUNIZATION Aged Out No longer e ligible based on patient's age to complete this topic MENINGITIS IMMUNIZATION Aged Out No l onger eligible based on patient's age to complete this topic RSV MONOCLONAL ANTIBODY Aged Out No l onger eligible based on patient's age to complete this topic Procedures Procedure Name Priority Date/Time Associated Diagnosis Comments COMPREHENSIVE METABOLIC PANEL STAT 05/17/2021 12:16 AM CDT LIPID PROFILE Routine 12/21/2020 9:31 AM SHIP SURVEYOR TSH STAT 06/26/2019 12:31 PM CDT ASTHMA ACTION PLAN Routine 05/26/2005 7: 52 PM CDT Asthma - Mild Intermittent from Last 3 Months or Most Recently Relevant to Health Maintenance Results * (ABNORMAL) Comprehensive metabolic panel (05/17/2021 12:16 AM CDT) Sodium 134(L) 136 - 145 mmol/L 05/17/2021 12:43 AM CDT [facility] Potassium 3.6 3.5 - 5.0 mmol/L 05/17/2021 12:43 AM CDT [facility] Chloride 100 98 - 107 mmol/L 05/17/2021 12:43 AM T [facility] Carbon Dioxide (CO2) 25 22 - 31 mmol/L 05/17/2021 12:43 AM [facility] Anion Gap 9 5 - 18 mmol/L 05/17/2021 12:43 AM [facility] Urea Nitrogen 9 8 - 22 mg/dL 05/17/2021 12:43 AM [facility] Creatinine 1.14(H) 0.60 - 1.10 mg/dL 05/17/2021 12:43 AM [facility] Calcium 8.1(L) 8.5 - 10.5 mg/dL 05/17/2021 12:43 AM [facility] Glucose 99 70 - 125 mg/dL 05/17/2021 12:43 AM [facility] Alkaline Phosphatase 43(L) 45 - 120 U/L 05/17/2021 12:43 AM [facility] AST 21 0 - 40 U/L 05/17/2021 12:43 AM [facility] ALT 12 0 - 45 U/L 05/17/2021 12:43 AM [facility] Protein Total 7.4 6.0 - 8.0 g/dL 05/17/2021 12:43 AM [facility] Albumin 3.4(L) 3.5 - 5.0 g/dL 05/17/2021 12:43 AM [facility] Bilirubin Total 0.3 0.0 - 1.0 mg/dL 05/17/2021 12:43 AM [facility] GFR Estimate 57(L) >60 mL/min/1.7 3m2 05/17/2021 12:43 AM [facility] Comment:As of April 25, 2021, eGFR is calculated by the CKD-EPI creatinine equation, without race adjustment. eGFR can be influenced by muscle mass, exercise, and diet. The reported eGFR is an estimation only and is only applicable if the renal function is stable. Blood VENOUS LINE / Unknown Venipuncture / Unknown 05/17/2021 12:16 AM CDT 05/17/2021 12:[address] [facility] Alberto Townsend MD LAB - BLOOD ORDERABL ES [facility] [address] [place] [address], [facility] [phone] * Lipid Profile (12/21/2020 9:31 AM SHIP SURVEYOR) Pathologist [facility] Cholesterol 177 <=199 mg/dL 12/21/2020 3:54 PM SHIP SURVEYOR [facility] Triglycerides 64 <=149 mg/dL 12/21/2020 3:54 PM SHIP SURVEYOR [facility] Direct Measure HDL 62 >=50 mg/dL 2020 3:54 PM SHIP SURVEYOR [facility] LDL Cholesterol Calculated 102 <=129 mg/dL 12/21/2020 3:54 PM SHIP SURVEYOR [facility] Patient Fasting > 8hrs? Yes 12/21/2020 3:54 PM SHIP SURVEYOR [facility] Blood specimen (specimen) 12/21/2020 9:31 AM SHIP SURVEYOR 12/21/2020 3:05 PM SHIP SURVEYOR Maile Lawrence MD LAB - BLOOD ORDER YVAN Performing Organization Address [facility]/ZIP Co de Phone Number [facility] [address] [address], [facility] [phone] [facility] [address] [place] [address] * TSH (06/26/2019 12:31 PM CDT) TSH 1.36 0.30 - 5.00 uIU/mL 06/26/2019 1:24 PM CDT [facility] Blood specimen (specimen) VAD(CVC, PICC) / Unknown 06/26/2019 12:31 PM CDT 06/26/2019 12:38 PM CDT Ashtyn Singer PA-C LAB - BLOOD O RDERABLES [facility] [place] [address] [address] [id number], [facility] [place] [address] [id number] from Last 3 Months or Most Recently Relevant to Health Maintenance Care Teams Biochemistry Teacher Relationship Specialty Start Date End Date Danitza Foster MD [address] [place], [place] [address] PCP - General 04/12/23 Danitza Foster MD [address] [place] [address] 05/04/15
--- OUTSIDE RECORDS SUMMARY | 2024-07-24 16:54 | XMS_ITS | Encounter Summary ---
Author Organization [facility] Address [address] [place] [address]. [place] [address] Care Team Providers Care Waste Disposal Attendant Name Role Phone Cristian Baca MD, Olga Unavailable [phone] Cristian Baca MD, Olga Primary Care Provider [phone] Encounter Details Date Type Department Care Team (Latest Contact Info) Description 07/10/2024 Travel Social History Tobacco Use Types Packs/Day [...] Description 08/13/2024 4:15 PM CDT Therapy Visit [facility] [address] [facility] [address] [place] [phone] [place] [address] [address] [place] [address] 08/27/2024 4:15 PM CADMIUM PLATER Therapy Visit [facility] [address] [facility] [address] [place] [phone] [place] [address] [address] [place] [address] 09/10/2024 4:15 PM CADMIUM PLATER Therapy Visit [facility] [address] [facility] [address] [place] [phone] [place] [address] [place] [address] documented as of this encounter Visit Diagnoses Not on filedocumented in this encounter Care Teams Waste Disposal Attendant Relationship Specialty Start Date End Date Danitza Foster MD [address] [place] [address] PCP - General 04/12/23 Danitza Foster MD [address] [place] [address] 05/04/15 documented as of this encounter
--- OUTSIDE RECORDS SUMMARY | 2024-07-24 16:54 | XMS_ITS | Referral Summary ---
Author Organization [facility] Address [address] [place] [address] Care Team Providers Care Stem Mounter Name Role Phone Cristian Baca MD, Olga Unavailable [phone] Cristian Baca MD, Olga Primary Care Provider [phone] Encounters Date Type Department Care Team Description 07/23/2024 Travel 07/23/2024 4:15 PM CDT Therapy Visit [facility] [address] [facility] [address] [place] [phone] Savanna Yu, PT Pelvic floor dysfunction in female (Primary Dx) 07/10/2024 Travel 07/10/2024 3:50 PM CDT Therapy Visit [facility] [address] [place] [address] [address] [place] [address] Savanna Yu, PT Pelvic floor dysfunction in female (Primary Dx) 06/28/2024 Travel 06/28/2024 4:10 PM CDT Therapy Visit [facility] [address] [facility] [address] [place] [address] Mitra Esteban, PUSHPA Pelvic floor dysfunction in female (Primary Dx) 06/20/2024 Travel 06/20/2024 5:20 PM CDT Therapy Visit [facility] [address] [facility] [address] [place] [address] Wild, Mitra, PT Pelvic floor dysfunction in female (Primary Dx) 06/14/2024 Travel 06/14/2024 10:20 AM CDT Therapy Visit [facility] [address] [facility] [address] [place] [address] Wild Mitra, PT Pelvic floor dysfunction in female (Primary Dx) 05/20/2024 Travel 05/20/2024 2:40 PM CDT Therapy Visit [facility] [address] [place] [address] [address] [place] [address] Wild Mitra, PT Pelvic floor dysfunction in female (Primary Dx) 05/07/2024 Travel 05/07/2024 2:15 PM CDT Therapy Visit [facility] [address] [place] [address] 300 [place] [address] Savanna Yu, PT Pelvic floor dysfunction in female (Primary Dx) 04/25/2024 Travel 04/25/2024 2:00 PM CDT Therapy Visit [facility] [address] [place] [address] 300 [place] [address] Mónica Estebangail, PT Pelvic floor dysfunction in female (Primary Dx) from Last 3 Months Allergies Active Allergy Reactions Criticality Noted Date [...] Allergic rhinitis due to other allergen 08/21/20 Mild intermittent asthma 05/26/2005 Resolved Problems Problem Noted Date Diagnosed Date Resolved Date Bilateral low back pain 04/25/202306/17 Pain in both lower extremities 04/25/2023 07/13/2023 Generalized muscle weakness 04/25/2023 07/13/2023 Balance problems 04/25/2023 07/13/2023 History of ovarian cancer 04/25/2023 Social History Tobacco Use Types Packs/Day Years [...] Description 08/13/2024 4:15 PM CDT Therapy Visit [facility] [address] [place] [phone] [place] [address] [place] [address] 08/27/2024 4:15 PM PHOTOGRAPHIC INTELLIGENCE OFFICER Therapy Visit [facility] [address] [facility] [address] [place] [phone] [place] [address] [place], [place] [address] 09/10/2024 4:15 PM PHOTOGRAPHIC INTELLIGENCE OFFICER Therapy Visit [facility] [address] [facility] [address] [place] [phone] [place] [address] [place], [place] [address] Procedures Procedure Name Priority Date/Time Associated Diagnosis Comments COMPREHENSIVE METABOLIC PANEL STAT 05/17/2021 12:16 AM CDT LIPID PROFILE Routine 12/21/2020 9:31 AM PHOTOGRAPHIC INTELLIGENCE OFFICER TSH STAT 06/26/2019 12:31 PM CDT ASTHMA ACTION PLAN Routine 05/26/2005 7: 52 PM CDT Asthma - Mild Intermittent from Last 3 Months or Most Recently Relevant to Health Maintenance Results * (ABNORMAL) Comprehensive metabolic panel (05/17/2021 12:16 AM CDT) Sodium 134(L) 136 - 145 mmol/L 05/17/2021 12:43 AM T [facility] Potassium 3.6 3.5 - 5.0 mmol/L 05/17/2021 12:43 AM CDT [facility] Chloride 100 98 - 107 mmol/L 05/17/2021 12:43 AM [facility] Carbon Dioxide (CO2) 25 22 - 31 mmol/L 05/17/2021 12:43 AM [facility] Anion Gap 9 5 - 18 mmol/L 05/17/2021 12:43 AM [facility] Urea Nitrogen 9 8 - 22 mg/dL 05/17/2021 12:43 AM [facility] Creatinine 1.14(H) 0.60 - 1.10 mg/dL 05/17/2021 12:43 AM [facility] Calcium 8.1(L) 8.5 - 10.5 mg/dL 05/17/2021 12:43 AM [facility] Glucose 99 70 - 125 mg/dL 05/17/2021 12:43 AM [facility] Alkaline Phosphatase 43(L) 45 - 120 U/L 05/17/2021 12:43 AM [facility] AST 21 0 - 40 U/L 05/17/2021 12:43 AM [facility] ALT 12 0 - 45 U/L 05/17/2021 12:43 AM [facility] Protein Total 7.4 6.0 - 8.0 g/dL 05/17/2021 12:43 AM [facility] Albumin 3.4(L) 3.5 - 5.0 g/dL 05/17/2021 12:43 AM [facility] Bilirubin Total 0.3 0.0 - 1.0 mg/dL 05/17/2021 12:43 AM [facility] GFR Estimate 57(L) >60 mL/min/1.7 3m2 05/17/2021 12:43 AM [facility] Comment:As of April 25, 2021, eGFR is calculated by the CKD-EPI creatinine equation, without race adjustment. eGFR can be influenced by muscle mass, exercise, and diet. The reported eGFR is an estimation only and is only applicable if the renal function is stable. Blood VENOUS LINE / Unknown Venipuncture / Unknown 05/17/2021 12:16 AM CDT 05/17/2021 12:23 AM T Alberot Townsend MD LAB - BLOOD ORDERABL ES [facility] [address] [place] [address], [facility] [phone] * Lipid Profile (12/21/2020 9:31 AM PHOTOGRAPHIC INTELLIGENCE OFFICER) Cholesterol 177 <=199 mg/dL 12/21/2020 3:54 PM PHOTOGRAPHIC INTELLIGENCE OFFICER [facility] Triglycerides 64 <=149 mg/dL 12/21/2020 3:54 PM PHOTOGRAPHIC INTELLIGENCE OFFICER [facility] Direct Measure HDL 62 >=50 mg/dL 2020 3:54 PM PHOTOGRAPHIC INTELLIGENCE OFFICER [facility] LDL Cholesterol Calculated 102 <=129 mg/dL 12/21/2020 3:54 PM PHOTOGRAPHIC INTELLIGENCE OFFICER [facility] Patient Fasting > 8hrs? Yes 12/21/2020 3:54 PM PHOTOGRAPHIC INTELLIGENCE OFFICER [facility] Blood specimen (specimen) 12/21/2020 9:31 AM PHOTOGRAPHIC INTELLIGENCE OFFICER 12/21/2020 3:05 PM PHOTOGRAPHIC INTELLIGENCE OFFICER Maile Lawrence MD LAB - BLOOD ORDER YVAN Performing Organization Address [facility]/ZIP Co de Phone Number [facility] [address] [address], [facility] [phone] [facility] [address] [place] [address] * TSH (06/26/2019 12:31 PM CDT) TSH 1.36 0.30 - 5.00 uIU/mL 06/26/2019 1:24 PM CDT [facility] Blood specimen (specimen) VAD(CVC, PICC) / Unknown 06/26/2019 12:31 PM CDT 06/26/2019 12:38 PM CDT Ashtyn Singer PA-C LAB - BLOOD O RDERABLES [facility] [place] [id number], [facility] [place] [address] [id number] from Last 3 Months or Most Recently Relevant to Health Maintenance Care Teams Stem Mounter Relationship Specialty Start Date End Date Danitza Foster MD [address] [place] [address] PCP - General 04/12/23 Danitza Foster MD [address] [place] [address] 05/04/15
--- OUTSIDE RECORDS SUMMARY | 2024-07-24 16:55 | XMS_ITS | Encounter Summary ---
Author Organization [facility] Address [address] [place] [address]. [place] [address] Care Team Providers Care Advanced Quality Engineer Name Role Phone Cristian Baca MD, Olga Unavailable [phone] Cristian Baca MD, Olga Primary Care Provider [phone] Reason for Visit * Rehab Therapy Integrated Services (Routine) - Authorized Specialty Diagnoses / Procedures Referred By Parth springer Referred To Contact Diagnoses Pelvic Floor/ Rosalind Obando CNP@ [place] [facility] Procedures PELVIC HEALTH TREATMENT [address] [address] Referral ID Status Reason Start Date Expiration Date V isits Requested Visits Authorized [id number] Authorized 10/24/2023 10/15/2024 365 365 Encounter Details Date Type Department Care Team (Latest Contact Info) Description 06/20/2024 5:20 PM CDT Therapy Visit [facility] Rehabilitation [facility] [address] [facility] [address] [place] [address] [place] [address] [place] [address] Pelvic floor dysfunction in female [...] Description 08/13/2024 4:15 PM CDT Therapy Visit [facility] [address] [place] [address] [place] [phone] [place] [address] [place] [address] 08/27/2024 4:15 PM FINISHING FRAME RUNNER Therapy Visit [address] [phone] [place] [address] [place], [place] [address] 09/10/2024 4:15 PM FINISHING FRAME RUNNER Therapy Visit [facility] [address] [place] [phone] [place] [address] [place] [address] documented as of this encounter Visit Diagnoses Diagnosis Pelvic floor dysfunction in female- Primary documented in this encounter Care Teams Advanced Quality Engineer Relationship Specialty Start Date End Date Danitza Foster MD [address] [place] [address] PCP - General 04/12/23 Danitza Foster MD [address] [place] [address] 05/04/15 documented as of this encounter
--- OUTSIDE RECORDS SUMMARY | 2024-07-24 16:55 | XMS_ITS | Encounter Summary ---
Author Organization [facility] Address [address] [place] [address]. [place] [address] Care Team Providers Care Spa Receptionist Name Role Phone Cristian Baca MD, Olga Unavailable [phone] Cristian Baca MD, Olga Primary Care Provider [phone] Encounter Details Date Type Department Care Team (Latest Contact Info) Description 05/07/2024 Travel Social History Tobacco Use Types Packs/Day [...] 4:15 PM CDT Therapy Visit [facility] [address] [facility] [address] [place] [phone] [place] [address] [address] [place] [address] 08/27/2024 4:15 PM INDUSTRIAL MAINTENANCE TECHNICIAN Therapy Visit [facility] [address] [facility] [address] [place] [phone] [place] [address] [address] [place] [address] 09/10/2024 4:15 PM INDUSTRIAL MAINTENANCE TECHNICIAN Therapy Visit [facility] [address] [facility] [address] [place] [phone] [place] [address] [place] [address] documented as of this encounter Visit Diagnoses Not on filedocumented in this encounter Care Teams Spa Receptionist Relationship Specialty Start Date End Date Danitza Foster MD [address] [place] [address] PCP - General 04/12/23 Danitza Foster MD [address] [place] [address] 05/04/15 documented as of this encounter
--- OUTSIDE RECORDS SUMMARY | 2024-07-24 16:55 | XMS_ITS | Encounter Summary ---
Author Organization [facility] Address [address] [place] [address]. [place] [address] Care Team Providers Care Press Hand Supervisor Name Role Phone Cristian Baca MD, Olga Unavailable [phone] Cristian Baca MD, Olga Primary Care Provider [phone] Encounter Details Date Type Department Care Team (Latest Contact Info) Description 06/28/2024 Travel Social History Tobacco Use Types Packs/Day [...] Description 08/13/2024 4:15 PM CDT Therapy Visit [facility] [address] [facility] [address] [place] [phone] [place] [address] [address] [place] [address] 08/27/2024 4:15 PM MANAGER INTEGRITY Therapy Visit [facility] [address] [facility] [address] [place] [phone] [place] [address] [address] [place] [address] 09/10/2024 4:15 PM MANAGER INTEGRITY Therapy Visit [facility] [address] [facility] [address] [place] [phone] [place] [address] [place] [address] documented as of this encounter Visit Diagnoses Not on filedocumented in this encounter Care Teams Press Hand Supervisor Relationship Specialty Start Date End Date Danitza Foster MD [address] [place] [address] PCP - General 04/12/23 Danitza Foster MD [address] [place] [address] 05/04/15 documented as of this encounter
--- OUTSIDE RECORDS SUMMARY | 2024-07-24 16:55 | XMS_ITS | Encounter Summary ---
Author Organization [facility] Address [address] [place] [address]. [place] [address] Care Team Providers Care Cardroom Drawing Runner Name Role Phone Cristian Baca MD, Olga Unavailable Cristian Baca MD, Olga Primary Care Provider [phone] Reason for Visit * Rehab Therapy Integrated Services (Routine) - Authorized Specialty Diagnoses / Procedures Referred By Parth springer Referred To Contact Diagnoses Pelvic Floor/ Rosalind Obando CNP@ [place] [facility]/HP Procedures PELVIC HEALTH TREATMENT [address] [address] Referral ID Status Reason Start Date Expiration Date V isits Requested Visits Authorized [id number] Authorized 10/24/2023 10/15/2024 365 365 Encounter Details Date Type Department Care Team (Latest Contact Info) Description 06/14/2024 10:20 AM CDT Therapy Visit [facility] Rehabilitation [facility] [address] [facility] [address] [place] [address] [place] [address] [place] [address] Pelvic floor dysfunction in female [...] Description 08/13/2024 4:15 PM CDT Therapy Visit [facility] [address] [place] [address] [place] [phone] [place] [address] [place] [address] 08/27/2024 4:15 PM GRANITE CHIP TERRAZZO FINISHER Therapy Visit [address] [phone] [place] [address] [place], [place] [address] 09/10/2024 4:15 PM GRANITE CHIP TERRAZZO FINISHER Therapy Visit [facility] [address] [place] [phone] [place] [address] [place] [address] documented as of this encounter Visit Diagnoses Diagnosis Pelvic floor dysfunction in female- Primary documented in this encounter Care Teams Cardroom Drawing Runner Relationship Specialty Start Date End Date Danitza Foster MD [address] [place] [address] PCP - General 04/12/23 Danitza Foster MD [address] [place] [address] 05/04/15 documented as of this encounter
--- OUTSIDE RECORDS SUMMARY | 2024-07-24 16:55 | XMS_ITS | Encounter Summary ---
Author Organization [facility] Address [address] [place] [address]. [place] [address] Care Team Providers Care Assistant Professor Of Sociology Name Role Phone Cristian Baca MD, Olga Unavailable [phone] Cristian Baca MD, Olga Primary Care Provider [phone] Encounter Details Date Type Department Care Team (Latest Contact Info) Description 06/14/2024 Travel Social History Tobacco Use Types Packs/Day [...] Description 08/13/2024 4:15 PM CDT Therapy Visit [facility] [address] [facility] [address] [place] [phone] [place] [address] [address] [place] [address] 08/27/2024 4:15 PM SENIOR MAINTENANCE MECHANIC Therapy Visit [facility] [address] [facility] [address] [place] [phone] [place] [address] [address] [place] [address] 09/10/2024 4:15 PM SENIOR MAINTENANCE MECHANIC Therapy Visit [facility] [address] [facility] [address] [place] [phone] [place] [address] [place] [address] documented as of this encounter Visit Diagnoses Not on filedocumented in this encounter Care Teams Assistant Professor Of Sociology Relationship Specialty Start Date End Date Danitza Foster MD [address] [place] [address] PCP - General 04/12/23 Danitza Foster MD [address] [place] [address] 05/04/15 documented as of this encounter
--- OUTSIDE RECORDS SUMMARY | 2024-07-24 16:55 | XMS_ITS | Encounter Summary ---
Author Organization [facility] Address [address] [place] [address]. [place] [address] Care Team Providers Care Supervisor Fish Hatchery Name Role Phone Cristian Baca MD, Olga Unavailable [phone] Cristian Baca MD, Olga Primary Care Provider [phone] Reason for Visit * Rehab Therapy Integrated Services (Routine) - Authorized Specialty Diagnoses / Procedures Referred By Patrh springre Referred To Contact Diagnoses Pelvic Floor/ Rosalind Obando CNP@ [place] [facility] Procedures PELVIC HEALTH TREATMENT [address] [address] Referral ID Status Reason Start Date Expiration Date V isits Requested Visits Authorized [id number] Authorized 10/24/2023 10/15/2024 365 365 Encounter Details Date Type Department Care Team (Latest Contact Info) Description 05/20/2024 2:40 PM CDT Therapy Visit [facility] Rehabilitation [facility] [address] [facility] [address] [place] [address] [place] [address] [place] [address] Pelvic floor dysfunction in female [...] 4:15 PM CDT Therapy Visit [facility] [address] [place] [address] [place] [phone] [place] [address] [place] [address] 08/27/2024 4:15 PM MINERALOGY PROFESSOR Therapy Visit [address] [phone] [place] [address] [place], [place] [address] 09/10/2024 4:15 PM MINERALOGY PROFESSOR Therapy Visit [facility] [address] [place] [phone] [place] [address] [place] [address] documented as of this encounter Visit Diagnoses Diagnosis Pelvic floor dysfunction in female- Primary documented in this encounter Care Teams Supervisor Fish Hatchery Relationship Specialty Start Date End Date Danitza Foster MD [address] [place] [address] PCP - General 04/12/23 Danitza Foster MD [address] [place] [address] 05/04/15 documented as of this encounter
--- OUTSIDE RECORDS SUMMARY | 2024-07-24 16:55 | XMS_ITS | Encounter Summary ---
Author Organization [facility] Address [address] [place] [address]. [place] [address] Care Team Providers Care Direct Support Staff Member Name Role Phone Cristian Baca MD, Olga Unavailable [phone] Cristian Baca MD, Olga Primary Care Provider [phone] Reason for Visit * Rehab Therapy Integrated Services (Routine) - Authorized Specialty Diagnoses / Procedures Referred By Parth springer Referred To Contact Diagnoses Pelvic Floor/ Rosalind Obando CNP@ [place] [facility]/HP Procedures PELVIC HEALTH TREATMENT [address] [address] Referral ID Status Reason Start Date Expiration Date V isits Requested Visits Authorized [id number] Authorized 10/24/2023 10/15/2024 365 365 Encounter Details Date Type Department Care Team (Latest Contact Info) Description 04/25/2024 2:00 PM CDT Therapy Visit [facility] Rehabilitation [facility] [address] [facility] [address] [place] [address] [place] [address] [place] [address] Pelvic floor dysfunction in female [...] Description 08/13/2024 4:15 PM CDT Therapy Visit [facility] [address] [place] [address] [place] [phone] [place] [address] [place] [address] 08/27/2024 4:15 PM GROUP TESTER Therapy Visit [address] [phone] [place] [address] [place], [place] [address] 09/10/2024 4:15 PM GROUP TESTER Therapy Visit [facility] [address] [place] [phone] [place] [address] [place] [address] documented as of this encounter Visit Diagnoses Diagnosis Pelvic floor dysfunction in female- Primary documented in this encounter Care Teams Direct Support Staff Member Relationship Specialty Start Date End Date Danitza Foster MD [address] [place] [address] PCP - General 04/12/23 Danitza Foster MD [address] [place] [address] 05/04/15 documented as of this encounter
--- OUTSIDE RECORDS SUMMARY | 2024-07-24 16:55 | XMS_ITS | Encounter Summary ---
Author Organization [facility] Address [address] [place] [address]. [place] [address] Care Team Providers Care Hand Quilter Name Role Phone Cristian Baca MD, Olga Unavailable [phone] Cristian Baca MD, Olga Primary Care Provider [phone] Encounter Details Date Type Department Care Team (Latest Contact Info) Description 05/20/2024 Travel Social History Tobacco Use Types Packs/Day [...] Description 08/13/2024 4:15 PM CDT Therapy Visit [facility] [address] [facility] [address] [place] [phone] [place] [address] [address] [place] [address] 08/27/2024 4:15 PM SYNTHETIC FILAMENT SPINNER Therapy Visit [facility] [address] [facility] [address] [place] [phone] [place] [address] [address] [place] [address] 09/10/2024 4:15 PM SYNTHETIC FILAMENT SPINNER Therapy Visit [facility] [address] [facility] [address] [place] [phone] [place] [address] [place] [address] documented as of this encounter Visit Diagnoses Not on filedocumented in this encounter Care Teams Hand Quilter Relationship Specialty Start Date End Date Danitza Foster MD [address] [place] [address] PCP - General 04/12/23 Danitza Foster MD [address] [place] [address] 05/04/15 documented as of this encounter
--- OUTSIDE RECORDS SUMMARY | 2024-07-24 16:55 | XMS_ITS | Encounter Summary ---
Author Organization [facility] Address [address] [place] [address]. [place] [address] Care Team Providers Care Crime Victim Specialist Name Role Phone Cristian Baca MD, Olga Unavailable [phone] Cristian Baca MD, Olga Primary Care Provider [phone] Encounter Details Date Type Department Care Team (Latest Contact Info) Description 06/20/2024 Travel Social History Tobacco Use Types Packs/Day [...] Description 08/13/2024 4:15 PM CDT Therapy Visit [facility] [address] [facility] [address] [place] [phone] [place] [address] [address] [place] [address] 08/27/2024 4:15 PM SHOT TUBE MACHINE TENDER Therapy Visit [facility] [address] [facility] [address] [place] [phone] [place] [address] [address] [place] [address] 09/10/2024 4:15 PM SHOT TUBE MACHINE TENDER Therapy Visit [facility] [address] [facility] [address] [place] [phone] [place] [address] [place] [address] documented as of this encounter Visit Diagnoses Not on filedocumented in this encounter Care Teams Crime Victim Specialist Relationship Specialty Start Date End Date Danitza Foster MD [address] [place] [address] PCP - General 04/12/23 Danitza Foster MD [address] [place] [address] 05/04/15 documented as of this encounter
--- OUTSIDE RECORDS SUMMARY | 2024-07-24 16:55 | XMS_ITS | Encounter Summary ---
Author Organization [facility] Address [address] [place] [address]. [place] [address] Care Team Providers Care Assistant Center Manager Name Role Phone Cristian Baca MD, Olga Unavailable [phone] Cristian Baca MD, Olga Primary Care Provider [phone] Reason for Visit * Rehab Therapy Integrated Services (Routine) - Authorized Specialty Diagnoses / Procedures Referred By Parth springer Referred To Contact Diagnoses Pelvic Floor/ Rosalind Obando CNP@ [place] Oncology/[facility] Procedures PELVIC HEALTH TREATMENT [address] [address] Referral ID Status Reason Start Date Expiration Date V isits Requested Visits Authorized [id number] Authorized 10/24/2023 10/15/2024 365 365 Encounter Details Date Type Department Care Team (Latest Contact Info) Description 06/28/2024 4:10 PM CDT Therapy Visit [facility] [address] [facility] [address] [place], [place] [phone] [place] [address] [place] [address] Pelvic floor dysfunction in female [...] Therapy Visit [facility] [id number] [place] [address] [place] [phone] [place] [address] [place] [address] 08/27/2024 4:15 PM MARKETING OPERATIONS COORDINATOR Therapy Visit [address] [phone] [place] [address] [place], [place] [phone] 09/10/2024 4:15 PM MARKETING OPERATIONS COORDINATOR Therapy Visit [facility] [address] [place] [phone] [place] [address] [place] [address] documented as of this encounter Visit Diagnoses Diagnosis Pelvic floor dysfunction in female- Primary documented in this encounter Care Teams Assistant Center Manager Relationship Specialty Start Date End Date Danitza Foster MD [address] [place] [address] PCP - General 04/12/23 Danitza Foster MD [address] [place] [address] 05/04/15 documented as of this encounter
--- OUTSIDE RECORDS SUMMARY | 2024-07-24 16:55 | XMS_ITS | Encounter Summary ---
Author Organization [facility] Address [address] [place] [address]. [address] Care Team Providers Care Video Recorder Mechanic Name Role Phone Cristian Baca MD, Olga Unavailable [phone] Cristian Baca MD, Olga Primary Care Provider [phone] Encounter Details Date Type Department Care Team (Latest Contact Info) Description 04/25/2024 Travel Social History Tobacco Use Types Packs/Day [...] Description 08/13/2024 4:15 PM CDT Therapy Visit [facility] [address] [facility] [address] [place] [phone] [place] [address] [address] [place] [address] 08/27/2024 4:15 PM ADJUNCT WRITING INSTRUCTOR Therapy Visit [facility] [address] [facility] [address] [place] [phone] [place] [address] [address] [place] [address] 09/10/2024 4:15 PM ADJUNCT WRITING INSTRUCTOR Therapy Visit [facility] [address] [facility] [address] [place] [phone] [place] [address] [place] [address] documented as of this encounter Visit Diagnoses Not on filedocumented in this encounter Care Teams Video Recorder Mechanic Relationship Specialty Start Date End Date Danitza Foster MD [address] [place] [address] PCP - General 04/12/23 Danitza Foster MD [address] [place] [address] 05/04/15 documented as of this encounter
--- OUTSIDE RECORDS SUMMARY | 2024-07-24 16:55 | XMS_ITS | Encounter Summary ---
Author Organization [facility] Address [address] [place] [address]. [place] [address] Care Team Providers Care Roving Marker Name Role Phone Cristian Baca MD, Olga Unavailable [phone] Cristian Baca MD, Olga Primary Care Provider [phone] Reason for Visit * Rehab Therapy Integrated Services (Routine) - Authorized Specialty Diagnoses / Procedures Referred By Parth springer Referred To Contact Diagnoses Pelvic Floor/ Rosalind Obando CNP@ [place] Oncology/HP Procedures PELVIC HEALTH TREATMENT [address] [address] Referral ID Status Reason Start Date Expiration Date V isits Requested Visits Authorized [id number] Authorized 10/24/2023 10/15/2024 365 365 Encounter Details Date Type Department Care Team (Latest Contact Info) Description 05/07/2024 2:15 PM CDT Therapy Visit [facility] [address] [place], [place] [phone] [place] [address] [place] [address] Pelvic floor dysfunction in female [...] on file documented as of this encounter Progress Notes * Savanna Yu, PT - 05/08/2024 12:59 PM CDT 05/07/24 0500 Appointment Info Signing clinician's name / credentials Savanna Yu, PT OCS Total/Authorized Visits EPIC 03/31/23 Visits Used 36 Medical Diagnosis Ovarian CA PT Tx Diagnosis pelvic floor dysfunction/pain/ Precautions/Limitations [id number], PT 15 min late. Other pertinent information total hysterectomy Oct 2022 + 6 mos chemo Quick Adds Pelvic Consent Progress Note/Certification Onset of illness/injury or Date of Surgery 10/24/22 (DOS) Therapy Frequency 1x week Predicted Duration 12 weeks Progress Note Due Date 04/30/24 Progress Note Completed Date 05/07/24 GOALS PT Goals 2 PT Goal 1 Goal Identifier Kegel strength 4 Goal Description for continence throughout the day/night for healthy hygeine Goal Progress 3+, no leakage noted Target Date 05/09/24 Date Met 05/07/24 PT Goal 2 Goal Identifier Pelvic pain 1-2/10 max with sitting/squatting Rationale to maximize safety and independence with performance of ADLs and functional tasks;to maximize safety and independence within the home;to maximize safety and independence within the community;to maximize safety and independence with transportation;to maximize safety and independence with self cares Goal Progress current 2-3/10, worsens with L LE quick movements Target Date 07/03/24 Subjective Report Subjective Report Notices L side sacrum/glute soreness and into L ITB with laying on L side. Some mis-coordination with stepping quickly with L side.Up 0-1 x night. Daytime voiding has to remember togo. Feels occasional spasms in lower pelvis, bowel workup neg. L shoulder ROM still a bit limited with reaching behind back.Overall feels like she is progressing and getting much stronger. Objective Measures Objective Measures Objective Measure 1 Objective Measure 1 Objective Measure Kegel strength 3+, good relaxation Details Mild high tone noted L OI/pelvic floor Objective Measure 2 Objective Measure Very TTP L piriformis and along glute max sacral attachment. Objective Measure 3 Objective Measure Improving strength in L LE grossly Treatment Interventions (PT) Interventions Manual Therapy Therapeutic Procedure/Exercise Ther Proc 1 360* breathing Ther Proc 1 - Details in child's pose Ther Proc 2 Standing bow and arrow Ther Proc 2 - Details 10 per side Ther Proc 3 - Details ulnar nerve gliding in standing, x10 , 2-3 x day Ther Proc 6 - Details leg press: sled 5, then SL x15 R and L at 3pl (fatigue but no pain) (nt) PTRx Ther Proc 1 Adductor Stretch PTRx Ther Proc 1 - Details cont HEP PTRx Ther Proc 2 Bridging w/ clamshells PTRx Ther Proc 2 - Details 30 sec x 3 PTRx Ther Proc 3 Pretzel Stretch PTRx Ther Proc 3 - Details 20 sec x 3 each side with towel pull up PTRx Ther Proc 4 Modified Plank w/ Hand Taps Forward (rev'd technique) PTRx Ther Proc 4 - Details 1-2x15 per arm PTRx Ther Proc 5 Full side plank 15 sec x 4 reps with rest in between (total 1 min each side) Skilled Intervention to improve core strength and ulnar nerve gliding Patient Response/Progress good response to ulnar nerve gliding Therapeutic Activity Therapeutic Activities Ther Act 2 Ther Act 1 Review of safety strategies for stairs Ther Act 1 - Details good Reinforced safety for reciprocal patern on stairs & step-to when particularly fatigued: goes to heaven, bad goes to hell (legs); pacing Ther Act 2 - Details high knees/butt kicks, carioca, side shuffles down hallway 2x each activity PTRx Ther Act 1 Posterior chain activation w/ SL deadlift w/ wall assist PTRx Ther Act 2 Abdominal Scar Tissue Desensitization PTRx Ther Act 2 - Details HEP Skilled Intervention to improve impact/control Patient Response/Progress no pain and fair to good motor plannin Neuromuscular Re-education Neuromuscular Re-education Neuro Re-ed 2;Neuro Re-ed 3;Neuro Re-ed 4 Neuro Re-ed 2 Ball toss on rebounder SLS with 8# Neuro Re-ed 2 - Details 2 x 10 B Neuro Re-ed 3 SLB on foam pad Neuro Re-ed 3 - Details 3 x 10 B (nt) PTRx Neuro Re-ed 1 SLS 30 sec no shoes on soft surface x2 each leg PTRx Neuro Re-ed 1 - Details 2x30 at counter w/ eyes open & then eyes closed Skilled Intervention to improve balance and neuro stability Patient Response/Progress good understanding Manual Therapy Manual Therapy: Mobilization, MFR, MLD, friction massage minutes (40991) 25 Manual Therapy Manual Therapy 3;Manual Therapy 2;Manual Therapy 4 Manual Therapy 1 in R SL to L glute/piriformis/ITB Manual Therapy 3 instructed in use of cupping: do 2-3 x week, 5-10 minutes on abdomen/ITB Skilled Intervention to decrease tension in L hip/glutes Patient Response/Progress good response, less pain after Education Learner/Method Patient;No Barriers to Learning Plan Home program PTRX HEP Comments Pelvic Health Informed Consent Statement Discussed with patient/guardian reason for referral regarding pelvic health needs and external/internal pelvic floor muscle examination. Opportunity provided to ask questions and verbal consent for assessment and intervention was given. Total Session Time Timed Code Treatment Minutes 25 Total Treatment Time (sum of timed and untimed services) 25 PLAN Continue therapy per current plan of care. Follow up PT every 2-3 weeks Beginning/End Dates of Progress Note Reporting Period: 05/07/24 to 05/07/2024 Referring Provider: Rosalind Obando documented in this encounter Plan of Treatment Upcoming Encounters Date Type Department Care Team (Late st Contact Info) Description 08/13/2024 4:15 PM CDT Therapy Visit [address] [phone] [place] [address] [place] [address] 08/27/2024 4:15 PM PRODUCTION TESTER Therapy Visit [address] [place] [phone] [place], [place] [phone] [place] [address] [address] [place] [address] 09/10/2024 4:15 PM PRODUCTION TESTER Therapy Visit [address] [phone] [place] [address] [place] [address] documented as of this encounter Visit Diagnoses Diagnosis Pelvic floor dysfunction in female- Primary documented in this encounter Care Teams Roving Marker Relationship Specialty Start Date End Date Danitza Fotser MD [address] [place] [address] PCP - General 04/12/23 Danitza Foster MD [address] [place] [address] 05/04/15 documented as of this encounter
--- OUTSIDE RECORDS SUMMARY | 2024-07-24 16:55 | XMS_ITS | Encounter Summary ---
Author Organization [facility] Address [address] [place] [address]. [place] [address] Care Team Providers Care Cemetery Manager Name Role Phone Cristian Baca MD, Olga Unavailable [phone] Cristian Baca MD, Olga Primary Care Provider [phone] Reason for Visit * Rehab Therapy Integrated Services (Routine) - Authorized Specialty Diagnoses / Procedures Referred By Parth springer Referred To Contact Diagnoses Pelvic Floor/ Rosalind Obando CNP@ [place] Oncology/HP Procedures PELVIC HEALTH TREATMENT [address] [address] Referral ID Status Reason Start Date Expiration Date V isits Requested Visits Authorized [id number] Authorized 10/24/2023 10/15/2024 365 365 Encounter Details Date Type Department Care Team (Latest Contact Info) Description 07/10/2024 3:50 PM CDT Therapy Visit [facility] [address] [place], [place] [address] [place] [address] [place] [address] Pelvic floor dysfunction in female [...] Progress Notes * Savanna Yu, PT - 07/11/2024 12:46 PM CDT 07/10/24 0500 Appointment Info Signing clinician's name / credentials Savanna Yu, PT, OCS Total/Authorized Visits EPIC 03/31/23 Visits Used 40 Medical Diagnosis Ovarian CA PT Tx Diagnosis pelvic floor dysfunction/pain/ Precautions/Limitations [id number] Other pertinent information total hysterectomy Oct 2022 + 6 mos chemo Progress Note/Certification Onset of illness/injury or Date of Surgery 10/24/22 (DOS) Therapy Frequency 2x month Predicted Duration 3 months Progress Note Due Date 09/09/24 Progress Note Completed Date 07/10/24 GOALS PT Goals 2 PT Goal 1 Goal Identifier Kegel strength 4 Goal Description for continence throughout the day/night for healthy hygeine Goal Progress 3+, no leakage noted Target Date 05/09/24 Date Met 05/07/24 PT Goal 2 Goal Identifier 90% confidence in L LE with quick movements/single leg activities/stairs Rationale to maximize safety and independence with performance of ADLs and functional tasks;to maximize safety and independence within the home;to maximize safety and independence within the community;to maximize safety and independence with transportation;to maximize safety and independence with self cares Goal Progress current 2-12/23, worsens with L LE quick movements Target Date 09/05/24 Subjective Report Subjective Report Overall getting better, feeling stronger. Feels like L>R feet drag/get tangledup when moving/turning/quicker movements. Ache in L groin with sitting long time, slightly with prolonged walking. Denies any urinary incontinence or frequency.Also seeing chiropractor ~ 1x week and L shoulder improving. Some discomfort with getting up from cross-legged position.Wore girdle which helps a lot. Objective Measures Objective Measures Objective Measure 1 Objective Measure 1 Objective Measure + FADIR L hip, -JENARO L. R leg ~ 1/4 inch shorter than L in supine and long sit. Details AROM Lumbar spine WNL Objective Measure 2 Objective Measure SLS L and R very shaky/unsteady but able to maintain SLS for 10 seconds each leg Objective Measure 3 Objective Measure Poor to fair TA set, poor control with SL weight shift bridge. Treatment Interventions (PT) Interventions Therapeutic Procedure/Exercise;Therapeutic Activity Therapeutic Procedure/Exercise Therapeutic Procedures: strength, endurance, ROM, flexibility minutes (88432) 25 Ther Proc 1 360* breathing (continue at home) Ther Proc 1 - Details in child's pose Ther Proc 2 Standing bow and arrow (nt) Ther Proc 2 - Details 10 per side Ther Proc 4 Standing shoulder flexion abs (nt) Ther Proc 4 - Details 1 x 20 w/ 8# Ther Proc 6 - Details leg press: sled 5, then SL x15 R and L at 3pl (fatigue but no pain) (nt) PTRx Ther Proc 1 Pretzel Stretch PTRx Ther Proc 1 - Details hep PTRx Ther Proc 2 Adductor Stretch PTRx Ther Proc 2 - Details hep PTRx Ther Proc 3 Side Stepping With Theraband PTRx Ther Proc 3 - Details 1-2 x 1-3 minutes PTRx Ther Proc 4 - Details active SLR hip flexion with good TA set x20 each leg PTRx Ther Proc 6 Bridges with Theraband PTRx Ther Proc 6 - Details x50 in/out with breaks as needed, PTRx Ther Proc 7 Side Plank Modified Knees PTRx Ther Proc 7 - Details nt PTRx Ther Proc 8 Pelvic Floor Muscle Strengthening Basic PTRx Ther Proc 8 - Details hep PTRx Ther Proc 9 Gluteal Stretch PTRx Ther Proc 9 - Details 1 min per side PTRx Ther Proc 10 Bridging On Ball With Hamstring Curls (Large Ball) (nt) PTRx Ther Proc 10 - Details 5-10 PTRx Ther Proc 11 Ball Prone Scapula I (nt) PTRx Ther Proc 11 - Details 2 x 15 w/ 3# dumbbells Skilled Intervention to improve core/LE control Patient Response/Progress good understanding Therapeutic Activity Therapeutic Activities: dynamic activities to improve functional performance minutes (75845) 15 Therapeutic Activities Ther Act 2 Ther Act 1 Review of safety strategies for stairs Ther Act 1 - Details good Reinforced safety for reciprocal patern on stairs & step-to when particularly fatigued: goes to heaven, bad goes to hell (legs); pacing Ther Act 2 TRIAL OF HEEL LIFT in R shoe Ther Act 2 - Details advised to wear whenever walking/exercising/on feet a lot Skilled Intervention to improve impact/control Patient Response/Progress [...] 10 B (nt) PTRx Neuro Re-ed 1 Balance Single Leg Stance Supported and Unsupported PTRx Neuro Re-ed 1 - Details No Notes PTRx Neuro Re-ed 2 Walking with 180 Degree Turns PTRx Neuro Re-ed 2 - Details No Notes PTRx Neuro Re-ed 3 Closed Kinetic Chain Upper Extremity Shoulder Taps Modified and Full Plank PTRx Neuro Re-ed 3 - Details No Notes PTRx Neuro Re-ed 4 Ulnar Nerve Glides PTRx Neuro Re-ed 4 - Details No Notes Education Learner/Method Patient;No Barriers to Learning Plan Home program PTRX HEP Plan for next session check on SLS and heel lift Total Session Time Timed Code Treatment Minutes 40 Total Treatment Time (sum of timed and untimed services) 40 PLAN Continue therapy per current plan of care. Beginning/End Dates of Progress Note Reporting Period: 07/10/24 to 07/10/2024 Referring Provider: Rosalind Obando documented in this encounter Plan of Treatment Upcoming Encounters Date Type Department Care Team (Late st Contact Info) Description 08/13/2024 4:15 PM CDT Therapy Visit [address] [place] [phone] [place] [address] [facility] [address] [place] [address] 08/27/2024 4:15 PM SENIOR WINDOWS ADMINISTRATOR Therapy Visit [facility] [address] [facility] [address] [place] [phone] [place] [address] [place] [address] 09/10/2024 4:15 PM SENIOR WINDOWS ADMINISTRATOR Therapy Visit [facility] [address] [facility] [address] [place] [phone] [place] [address] [address] [place] [address] documented as of this encounter Visit Diagnoses Diagnosis Pelvic floor dysfunction in female- Primary documented in this encounter Care Teams Cemetery Manager Relationship Specialty Start Date End Date Danitza Foster MD [address] [place] [address] PCP - General 04/12/23 Danitza Foster MD [address] [place] [address] 05/04/15 documented as of this encounter
== END 2024-07-24 16:52 | disposition home or self-care (01) ==
PROVIDERS: PCP Internal Medicine; Visit Provider Internal Medicine
DX: R53.83 Other fatigue (principal)
CPT/HCPCS: 80053; 84443